=== PATIENT | female | born 1995 | race Caucasian/White ===

== ENCOUNTER 2019-03-01 03:13 | Emergency (ER) | payer OTHER, SELFPAY ==
[~2019-03-01] VITALS: Ht 152.4 cm; Wt 65.9 kg
[2019-03-01 03:49] LABS: BASO % 0.3 % (0.0-1.0); EOS # 0.1 10^3/uL (0.0-0.50); EOS % 1.7 % (0.0-3.0); HEMATOCRIT 37.3 % (36.0-47.0); HEMOGLOBIN 12.4 g/dl (12.0-15.5); LYMPH # 1.3 10^3/uL (1.5-6.5); LYMPH % 19.8 % (24.0-44.0); MEAN CORPUSCULAR HEMOGLOBIN 27.5 pg (27.0-33.0); MEAN CORPUSCULAR HGB CONC 33.2 g/dl (32.0-36.5); MEAN CORPUSCULAR VOLUME 82.7 fl (80.0-96.0); MONO # 0.4 10^3/uL (0.0-0.8); NEUTROPHILS # 4.7 10^3/uL (1.8-7.7); PLATELET COUNT, AUTOMATED 175 10^3/uL (150-450); RED BLOOD COUNT 4.51 10^6/uL (4.00-5.40); WHITE BLOOD COUNT 6.5 10^3/uL (4.0-10.0)
--- NOTE | 2019-03-01 06:18 | REPVR ---
EXAM: US First Trimester, Transabdominal EXAM DATE/TIME: 03/01/2019 3:45 AM CLINICAL HISTORY: 24 years old, female; Lmp or gestational age (in weeks): 14wks; Other: Vag bleeding; ; Additional info: Demetrio miranda TECHNIQUE: Imaging protocol: Real-time transabdominal obstetrical ultrasound of the maternal pelvis and a first trimester , less than 14 weeks 0 days, with image documentation. COMPARISON: No relevant prior studies available. FINDINGS: GESTATION: Gestation: Gestational sac centered in the lower uterine segment with no yolk sac or pole. Abdomen: The urinary bladder is distended and within normal limits. BIOMETRY: Estimated gestational age: Mean sac size is 18 mm suggesting an age of 6 weeks 5 days. MATERNAL: Uterus: The fundal endometrium measures 10 mm. The uterus measures 9.9 cm in its cephalocaudad dimension and 4.9 x 6.1 cm in its AP and lateral dimensions transabdominal. The uterus measures 8.7 cm in its cephalocaudad dimension and 5.9 x 6.2 cm in its AP and lateral dimensions transvaginal. Cervix: Unremarkable. Right adnexa: The right ovary measures 3.4 x 1.9 x 1.9 cm and demonstrates blood flow. Left adnexa: The left ovary measures 2.8 x 3.0 x 1.7 cm and demonstrates blood flow. Intraperitoneal: No intraperitoneal free fluid. IMPRESSION: 1. Gestational sac centered in the lower uterine segment with no pole or yolk sac. Sac size suggests an age of 6 weeks 5 days. Findings may reflect AB in progress. 2. Otherwise negative pelvic sonogram. Electronically signed by: Cipriano Thorpe On 03/01/2019 06:18:11 AM
[2019-03-01 07:29] VITALS: BP 126/65
== END 2019-03-01 07:47 | disposition home or self-care (01) ==
LOC: EDBD 03:13 → M ED 03:13
DX: O20.0 Threatened abortion (principal); Z3A.01 Less than 8 weeks gestation of pregnancy

== ENCOUNTER → 2019-11-15 | Outpatient (CLI) | payer SELFPAY | LOC: M LABSMTC 09:59 | PROVIDERS: ATTEND Family Medicine | DX: Z53.9 Procedure and treatment not carried out, unspecified reason (principal) ==

== ENCOUNTER → 2019-11-15 | Outpatient (CLI) | payer OTHER, SELFPAY | LOC: M LABSMTC 13:10 | PROVIDERS: ATTEND Family Medicine | DX: Z03.818 Encounter for observation for suspected exposure to other biological agents ruled out (principal) ==